=== PATIENT | male | born 1960 | race Two or more races ===

== ENCOUNTER 2017-12-13 09:33 | Emergency (ER) | payer MEDICAID ==
[~2017-12-13] VITALS: Ht 167.6 cm; Wt 67.0 kg
[2017-12-13 09:34] VITALS: BP 158/85
== END 2017-12-13 11:54 | disposition home or self-care (01) ==
LOC: ED 11:08
DX: S00.33XA Contusion of nose, initial encounter (principal); S96.911A Strain of unspecified muscle and tendon at ankle and foot level, right foot, initial encounter; W01.0XXA Fall on same level from slipping, tripping and stumbling without subsequent striking against object, initial encounter; Y93.89 Activity, other specified; Y99.8 Other external cause status; Y92.009 Unspecified place in unspecified non-institutional (private) residence as the place of occurrence of the external cause
CPT/HCPCS: 70486; 99284

== ENCOUNTER 2018-12-21 07:19 | Emergency (ER) | payer MEDICAID ==
[~2018-12-21] VITALS: Ht 170.2 cm; Wt 67.8 kg
[2018-12-21 08:30] VITALS: BP 125/76
== END 2018-12-21 10:12 | disposition home or self-care (01) ==
LOC: ED 07:48
DX: N30.00 Acute cystitis without hematuria (principal); B37.42 Candidal balanitis; N43.3 Hydrocele, unspecified; I86.1 Scrotal varices; L72.0 Epidermal cyst
CPT/HCPCS: 76870; 87491; 87591; 93975; 96372; 99284; J0696

== ENCOUNTER 2019-05-12 17:42 | Emergency (ER) | payer MEDICAID ==
[~2019-05-12] VITALS: Ht 167.6 cm; Wt 68.0 kg
[2019-05-12 17:44] VITALS: BP 140/81
[2019-05-12] MEDS ORDERED: PROPARACAINE OPHTH 0.5%, 15ML ONE (18:58)
[2019-05-12] MEDS ORDERED: FLUORESCEIN OPHTHALMIC 1 MG STRIP ONE (18:59)
--- NOTE | 2019-05-12 19:01 | NUR ---
BEDSIDE REPORT FROM HANNAH GALVAN
== END 2019-05-12 19:30 | disposition home or self-care (01) ==
LOC: ED 19:27
DX: S05.01XA Injury of conjunctiva and corneal abrasion without foreign body, right eye, initial encounter (principal); H11.31 Conjunctival hemorrhage, right eye; X58.XXXA Exposure to other specified factors, initial encounter; Y93.89 Activity, other specified; Y92.89 Other specified places as the place of occurrence of the external cause; Y99.8 Other external cause status
CPT/HCPCS: 99282